=== PATIENT | male | born 1970 ===

== ENCOUNTER 2019-10-19 18:13 | Emergency (ER) | payer OTHER ==
[~2019-10-19] VITALS: Ht 182.9 cm; Wt 95.0 kg
[2019-10-19 18:19] VITALS: BP 129/73
[2019-10-19] MEDS ORDERED: ketorolac tromethamine 15mg/ml inj. IM ONE (19:00)
== END 2019-10-19 19:09 | disposition home or self-care (01) ==
LOC: ER 18:14
DX: S82.891A Other fracture of right lower leg, initial encounter for closed fracture (principal); W39.XXXA Discharge of firework, initial encounter; Y93.01 Activity, walking, marching and hiking; Y92.828 Other wilderness area as the place of occurrence of the external cause; Y99.8 Other external cause status
CPT/HCPCS: 29515; 96372; 99283; J1885